=== PATIENT | female | born 1985 | race Caucasian/White ===

== ENCOUNTER 2017-11-13 16:25 | Emergency (ER) | payer OTHER ==
[~2017-11-13] VITALS: Ht 162.6 cm; Wt 90.7 kg
[~2017-11-13 16:25] MED LIST: MULTIPLE VITAM1 EAC2 PO
[2017-11-13] MEDS ORDERED: MIRENA1 EACH (16:32)
--- NOTE | 2017-11-13 16:42 | ED UPPER/LOWER EXTREMITY COMPL ---
History of Present Illness General Chief Complaint: Lower Extremity Problems Stated Complaint: PAIN IN LEFT LEG/NUMBNESS PER PT Source: patient Exam Limitations: no limitations Vital Signs & Intake/Output Vital Signs & Intake/Output Vital Signs Date Time Temp Pulse Resp B/P B/P Pulse O2 O2 Flow FiO2 Mean Ox Delivery Rate 11/13 1630 98.6 77 18 121/85 99 Room Air Allergies Coded Allergies: No Known Allergies (11/13/17) Reconcile Medications Levonorgestrel (Mirena) 20 MCG/24 HOUR (5 YEARS) IUD CONTROL (Reported) Multivitamin (Multiple Vitamins) 1 EACH TABLET 1 TAB PO DAILY SUPPLEMENT ( Reported) Triage Note: PT TO ER C/C LEFT LOW BACK PAIN RADIATING DOWN LEG INTO FOOT. +NUMBNESS TO FOOT. DENIES LOSS OF BLADDER/BOWEL FUNCTION. DENIES INJURY OR TRAUMA. Triage Nurses Notes Reviewed? yes : No Patient currently breastfeeds: No HPI: 32yo healthy female who presents today with shooting pain and numbness down her left leg. The pain starts in her sacral region and radiates down to the left foot. The pain has been ongoing for months and has increased in pain and intensity most significantly over the last week. Pt has tried NSAIDs, muscle relaxer, heating pads without much success. Pt denies any fever, chills, incontinence, or trauma. Pt has positive straight leg test. Past History Travel History Traveled to [place] past 21 day No Medical History Any Pertinent Medical History? 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 No Review of Systems Review of Systems Constitutional: Reports: no symptoms. EENTM: Reports: no symptoms. Respiratory: Reports: no symptoms. Cardiovascular: Reports: no symptoms. Gastrointestinal/Abdominal: Reports: no symptoms. Genitourinary: Reports: no symptoms. Musculoskeletal: Reports: no symptoms. Skin: Reports: no symptoms. Neurological/Psychological: Reports: no symptoms. Hematologic/Endocrine: Reports: no symptoms. Immunological: Reports: no symptoms. All Other Systems: Reviewed and Negative Physical Exam Physical Exam General Appearance: well developed/nourished, no apparent distress Head: atraumatic, normal appearance Eyes: Bilateral: normal appearance. Ears, Nose, Throat: normal pharynx, hearing grossly normal Neck: normal inspection, supple, full range of motion Cardiovascular/Respiratory: normal breath sounds, normal peripheral pulses Back: normal inspection, normal range of motion, no vertebral tenderness, positive straight leg on the left with minimal flexion Shoulder Left: normal range of motion, normal inspection Shoulder Right: normal range of motion, normal inspection Leg Left: normal range of motion, normal inspection Leg Right: normal range of motion, normal inspection Skin: intact, normal color, warm/dry Progress Differential Diagnosis: contusion, dislocation, fracture, sprain, tendon injury Plan of Care: Current Medications Sig/Carmelo Start time Last Medication Dose Stop Time Status Admin Cyclobenzaprine HCl 10 MG ONCE ONE 11/13 1699 UNVr (Flexeril 10MG Tab) 11/13 1700 Dexamethasone 4 MG ONCE ONE 11/13 1699 UNVr (Decadron) 11/13 1700 Ketorolac 30 MG ONCE ONE 11/13 1699 UNVr Tromethamine 11/13 1700 (Toradol) Tramadol HCl 50 MG ONCE ONE 11/13 1699 UNVr (Ultram) 11/13 1700 Departure Departure Disposition: HOME OR SELF CARE Condition: Stable Clinical Impression Primary Impression: Sciatica of left side Referrals: Patient Has No Primary Care Dr Additional Instructions: Follow up with your PCP. You can use warm compresses on your back. You will require a referral for physical therapy from your PCP. Being more active will lessen the pain, lying down for a while will worsen it. Return to ER if you have incontinence, difficulty voiding, numbness/tingling in your thighs/groin, weakness of your legs, or any other new or worsening symptom. Departure Forms: Customer Survey General Discharge Information
[2017-11-13 17:33] VITALS: BP 128/81
== END 2017-11-13 17:32 ==
LOC: ERH 16:25
DX: M54.32 Sciatica, left side (principal)
CPT/HCPCS: 96372; J1100